=== PATIENT | male | born 1980 | race Caucasian/White ===

== ENCOUNTER 2016-05-28 22:10 | Emergency (ER) | payer OTHER | END 2016-05-29 01:04 | disposition home or self-care (01) | LOC: ER 22:10 | DX: J06.9 Acute upper respiratory infection, unspecified (principal); R51 Headache; J02.9 Acute pharyngitis, unspecified; F17.210 Nicotine dependence, cigarettes, uncomplicated; Z88.0 Allergy status to penicillin; Z88.1 Allergy status to other antibiotic agents | CPT/HCPCS: 87400; 99283 ==

== ENCOUNTER 2016-06-18 22:26 | Emergency (ER) | payer OTHER | END 2016-06-19 02:37 | disposition home or self-care (01) | LOC: ER 22:26 | DX: M54.5 Low back pain (principal); G89.29 Other chronic pain; F17.210 Nicotine dependence, cigarettes, uncomplicated; Z88.0 Allergy status to penicillin; Z88.1 Allergy status to other antibiotic agents | CPT/HCPCS: 99282 ==

== ENCOUNTER 2016-06-30 18:25 | Emergency (ER) | payer OTHER | END 2016-06-30 19:33 | disposition home or self-care (01) | LOC: ER 18:25 | DX: S70.10XA Contusion of unspecified thigh, initial encounter (principal); T14.8 Other injury of unspecified body region; V28.4XXA Motorcycle driver injured in noncollision transport accident in traffic accident, initial encounter; F17.210 Nicotine dependence, cigarettes, uncomplicated; Z88.0 Allergy status to penicillin; Z88.5 Allergy status to narcotic agent; Z88.1 Allergy status to other antibiotic agents ==

== ENCOUNTER 2016-07-02 08:38 | Emergency (ER) | payer OTHER | END 2016-07-02 09:30 | disposition home or self-care (01) | LOC: ER 08:38 | DX: M79.651 Pain in right thigh (principal); M79.652 Pain in left thigh; V29.9XXD Motorcycle rider (driver) (passenger) injured in unspecified traffic accident, subsequent encounter; Z88.0 Allergy status to penicillin; Z88.1 Allergy status to other antibiotic agents ==

== ENCOUNTER 2016-07-03 00:01 | Emergency (ER) | payer OTHER | END 2016-07-03 02:00 | disposition other institution (70) | LOC: ER 00:01 | DX: J06.9 Acute upper respiratory infection, unspecified (principal); B37.0 Candidal stomatitis; R50.9 Fever, unspecified; R51 Headache; Z79.891 Long term (current) use of opiate analgesic; Z88.0 Allergy status to penicillin; Z88.1 Allergy status to other antibiotic agents ==

== ENCOUNTER 2016-07-05 11:57 | Emergency (ER) | payer OTHER | END 2016-07-05 14:03 | disposition home or self-care (01) | LOC: ER 11:57 | DX: S83.91XD Sprain of unspecified site of right knee, subsequent encounter (principal); V29.3XXD Motorcycle rider (driver) (passenger) injured in unspecified nontraffic accident, subsequent encounter; F17.210 Nicotine dependence, cigarettes, uncomplicated | CPT/HCPCS: 73564; 99070; 99283-25 ==

== ENCOUNTER 2016-08-01 23:30 | Emergency (ER) | payer OTHER | END 2016-08-02 01:00 | disposition home or self-care (01) | LOC: ER 23:30 | DX: L73.9 Follicular disorder, unspecified (principal); Z88.0 Allergy status to penicillin; Z88.1 Allergy status to other antibiotic agents; F17.210 Nicotine dependence, cigarettes, uncomplicated | CPT/HCPCS: 99282 ==

== ENCOUNTER 2016-09-12 11:21 | Emergency (ER) | payer OTHER | END 2016-09-12 12:29 | disposition home or self-care (01) | LOC: ER 11:21 | DX: S60.222A Contusion of left hand, initial encounter (principal); W20.8XXA Other cause of strike by thrown, projected or falling object, initial encounter; Y99.0 Civilian activity done for income or pay; Y92.59 Other trade areas as the place of occurrence of the external cause; R21 Rash and other nonspecific skin eruption; F17.210 Nicotine dependence, cigarettes, uncomplicated; Z88.0 Allergy status to penicillin; Z88.1 Allergy status to other antibiotic agents | CPT/HCPCS: 73130; 99070; 99283 ==